=== PATIENT | male | born 1980 | race Caucasian/White ===

== ENCOUNTER 2020-01-25 19:43 | Emergency (ER) | payer OTHER, MEDICAID, SELFPAY ==
[2020-01-25 19:51] VITALS: BP 142/85; PULSE 123; RESP 14; TEMP 37.4; O2SAT 100; BMI 25.7
--- NOTE | 2020-01-25 21:41 | ED_ITS ---
HPI - General Adult General Chief complaint: Dental/Oral Stated complaint: states abscessed tooth Time Seen by Provider: 01/25/20 21:38 Source: patient Mode of arrival: Ambulatory Limitations: no limitations History of Present Illness HPI narrative: 39-year-old male with known very poor dentition here for evaluation of pain in his left upper jaw on left side of his cheek. He states that it feels like it is somewhat swollen this area. No problems breathing. Does not tried anything for the symptoms prior to arrival. Related Data Previous Rx's Medication Instructions Recorded penicillin V potassium 500 mg PO QID 7 Days #28 tab 01/25/20 Allergies Allergy/AdvReac Type Severity Reaction Status Date / Time No Known Drug Allergies Allergy Verified 01/25/20 19:51 Review of Systems Constitutional Constitutional: Denies fever(s) Eyes Eyes: Denies change in vision ENT Comments: Left upper with pain to that the G the. Cardiovascular Cardiovascular: Denies dyspnea Respiratory Respiratory: Denies dyspnea Gastrointestinal Gastrointestinal: Denies abdominal pain Integumentary/Breasts Skin/Breast: Denies lesions and Denies rash Neurologic Neurologic: Denies behavioral changes Psychiatric Psychiatric: Denies behavioral changes Hematologic/Lymphatic Hematologic/Lymphatic: Denies easy bleeding and Denies easy bruising Patient History Medical History Healthy adult (Acute) Social History Smoking Status: Current every day smoker Smoking Status: Current every day smoker alcohol intake frequency: holidays/special occasions only Substance Use Type: does not use Exam Initial Vital Signs Initial Vital Signs: Vital Signs Temperature 99.4 F 01/25/20 19:51 Pulse Rate 123 H 01/25/20 19:51 Respiratory Rate 14 01/25/20 19:51 Blood Pressure 142/85 H 01/25/20 19:51 Pulse Oximetry 100 01/25/20 19:51 Const General: cooperative and comfortable HENMT Face and sinus: edema on the left maxilla Mouth: oral mucosae normal Teeth and gingiva: poor dentition Throat: posterior oropharynx normal Resp Effort & Inspection: normal respiratory effort Skin Lesions: no lesions Rashes: no rashes Neuro General: alert and awake Cognition: normal cognition Speech: speech normal Extrem General: normal to inspection and capillary refill normal Course Orders Ordered: Discontinued Medications Penicillin V Potassium (Veetids) 500 mg PO NOW ONE Stop: 01/25/20 21:42 Last Admin: 01/25/20 22:00 Dose: 500 mg Documented by: ÁNGEL Vital Signs Vital signs: Vital Signs - 8 hr 01/25/20 19:51 01/25/20 22:04 Temperature 99.4 F Pulse Rate 123 H 97 H Respiratory Rate 14 16 Blood Pressure 142/85 H 146/92 H Pulse Oximetry 100 100 Medical Decision Making MDM Narrative Medical decision making narrative: Patient has very poor dentition. His exam is concerning for an infection. There is no drainable abscess seen here in the ER. We will give prescription for antibiotics. He was instructed that he does need to contact a dentist for a follow-up and definitive treatment. He was given return precautions. He expressed understanding and agreement. Discharge Plan Departure Patient Disposition: Home Clinical Impression: Dental abscess Discharge Date/Time: 01/25/20 22:05 Instructions: Tooth Abscess Activity Restrictions/Additional Instructions: Take the antibiotics as directed. I do recommend that you may contact with a dentist for definitive treatment. You can also contact [phone]. This is the health patient resource coordinator at the hospital. They can help you establish a primary provider. Prescriptions: New penicillin V potassium 500 mg tablet 500 mg PO QID 7 Days Qty: 28 RF: 0
[2020-01-25] MEDS: PENICILLIN VK 250 MG TABLET 500 MG PO (22:00)
[2020-01-25 22:04] VITALS: BP 146/92; PULSE 97; RESP 16; O2SAT 100
== END 2020-01-25 22:05 | disposition home or self-care (01) ==
PROVIDERS: Emergency Provider Emergency Medicine
DX: K04.7 Periapical abscess without sinus (principal)
CPT/HCPCS: 99283

== ENCOUNTER 2020-04-07 00:58 | Emergency (ER) | payer OTHER, MEDICAID, SELFPAY ==
[2020-04-07 01:07] VITALS: BP 142/90; PULSE 110; RESP 15; TEMP 36.7; O2SAT 98; BMI 25.0
--- NOTE | 2020-04-07 01:11 | DI.RAD.S_ITS ---
PROCEDURE: XR CHEST 1V INDICATIONS: chest pain TECHNIQUE: One view of the chest was acquired. COMPARISON: None. FINDINGS: Surgical changes and devices: None. Lungs and pleura: Lungs are clear. No pleural effusions or pneumothorax. Mediastinum: Mediastinal contours appear normal. Heart size is normal. Bones and chest wall: No suspicious bony lesions. Overlying soft tissues appear unremarkable. IMPRESSION: No acute cardiopulmonary findings. Dictated by: Laurie West M.D. on 04/07/2020 at 8:55 Approved by: Laurie West M.D. on 04/07/2020 at 9:05
[2020-04-07] MEDS: SODIUM CHLORIDE 0.9% 1,000 ML 150 ML IV (01:19)
[2020-04-07] MEDS: ASPIRIN 81 MG CHEW TAB 324 MG PO (01:19)
[2020-04-07 01:28] LABS: Add Manual Diff / Slide Review NO; Basophils Absolute Auto 100 /uL (0-100); Basophils Percent Auto 1.7 % (0-2); Eosinophils Absolute Auto 400 /uL (0-450); Eosinophils Percent Auto 6.7 % (2-4); Hematocrit 39.9 % (41-53); Hemoglobin 13.6 g/dL (13.5-17.5); Lymphocytes Absolute Auto 3100 /uL (1100-4500); Lymphocytes Percent Auto 47.1 % (25-40); Mean Corpuscular Hemoglobin 30.2 PG (26-34); Mean Corpuscular Volume 88.6 fL (80-100); Monocytes Absolute Auto 600 /uL (0-900); Monocytes Percent Auto 8.6 % (3-14); Neutrophils Absolute Auto 2300 /uL (1500-7000); Neutrophils Percent Auto 35.9 % (50-75); Platelet Count 295 X10^3/uL (150-400); Red Cell Distribution Width 13.1 % (11.6-14.8); White Blood Cell Count 6.5 X10^3/uL (4.5-11.0)
[2020-04-07 01:34] LABS: Alanine Aminotransferase 23 IU/L (<50); Albumin 4.4 g/dL (3.5-5.0); Albumin Globulin Ratio 1.4 (1.0-2.8); Alkaline Phosphatase 54 U/L (38-126); Aspartate Aminotransferase 20 IU/L (17-59); BUN Creatinine Ratio 12.8 (6-22); Bilirubin Total 0.2 mg/dL (0.2-1.3); Blood Urea Nitrogen 16 mg/dL (9-20); Calcium 9.6 mg/dL (8.4-10.2); Carbon Dioxide 29 mmol/L (22-32); Chloride 100 mmol/L (98-107); Creatine Kinase 59 U/L (55-170); Estimated Glomerular Filt Rate > 60.0 mL/min (>60); Globulin 3.1 g/dL (1.7-4.1); Glucose 121 mg/dL (70-100); HEMOLYSIS < 15 (0-50); Lipase 114 U/L (23-300); Potassium 3.9 mmol/L (3.4-5.1); Sodium 137 mmol/L (137-145); Total Protein 7.5 g/dL (6.3-8.2)
[2020-04-07 01:35] LABS: D Dimer < 200 ng/mL (<230)
[2020-04-07 01:46] LABS: Troponin I < 0.012 ng/mL (0.01-0.034)
--- NOTE | 2020-04-07 02:17 | ED_ITS ---
HPI - Chest Pain General Chief Complaint: Chest Pain Stated Complaint: 'chest thing going on' Time Seen by Provider: 04/07/20 01:00 Source: patient Mode of arrival: Ambulatory Limitations: no limitations History of Present Illness HPI narrative: 39M smoker with history of smoking methamphetamines presents with a chief complaint of some anterior chest pressure for the past 3 days. He denies any provocation, palliation or radiation. He denies associated symptoms such as dizziness, weakness, lightheadedness or sweating. He has had no productive cough and denies symptoms such as runny nose, sore throat, headache or change in the ability to smell. complaint: chest pain Onset (ago): day(s) Duration: constant Onset: other Pain location: substernal Severity: mild Quality: aching Pain radiation: none Relieving factors: nothing Exacerbating factors: nothing Treatments prior to arrival chest pain: none Related Data Previous Rx's Medication Instructions Recorded doxycycline hyclate 100 mg PO BID #20 tab 04/07/20 Allergies Allergy/AdvReac Type Severity Reaction Status Date / Time No Known Drug Allergies Allergy Verified 04/07/20 01:07 Review of Systems Constitutional Constitutional: Denies chills, Denies fatigue, Denies fever(s), Denies frequent falls, Denies lethargy and Denies weakness Eyes Eyes: Denies change in vision, Denies eye discharge, Denies irritation and Denies loss of vision ENT Ears, Nose, Mouth, and Throat: Denies change in voice, Denies dizziness, Denies neck pain, Denies sore throat and Denies throat swelling Cardiovascular Cardiovascular: Reports chest pain, Denies irregular heart rhythm, Denies lightheadedness, Denies palpitations, Denies dyspnea, Denies dyspnea on exertion and Denies orthopnea Respiratory Respiratory: Denies cough, Denies dyspnea, Denies dyspnea on exertion and Denies wheezing Gastrointestinal Gastrointestinal: Denies abdominal pain, Denies change in bowel habits, Denies diarrhea, Denies nausea and Denies vomiting Genitourinary Genitourinary: Denies hematuria, Denies flank pain, Denies urinary incontinence and Denies urinary urgency Musculoskeletal Musculoskeletal: Denies back pain, Denies muscle weakness, Denies neck pain, Denies numbness and Denies tingling Integumentary/Breasts Skin/Breast: Denies pruritus, Denies erythema, Denies rash and Denies wounds Neurologic Neurologic: Denies behavioral changes, Denies confusion, Denies dizziness, Denies frequent falls, Denies loss of vision, Denies numbness, Denies tingling and Denies weakness Psychiatric Psychiatric: Denies anxiety, Denies behavioral changes, Denies confusion, Denies depression, Denies homicidal ideation and Denies suicidal ideation Endocrine Endocrine: Denies fatigue, Denies flushing and Denies palpitations Hematologic/Lymphatic Hematologic/Lymphatic: Denies easy bruising Allergic/Immunologic Allergic/Immunologic: Denies urticaria, Denies throat swelling and Denies wheezing Patient History Medical History Healthy adult (Acute) Social History Smoking Status: Current every day smoker Smoking Status: Current every day smoker alcohol intake frequency: holidays/special occasions only Substance Use Type: methamphetamine Exam Narrative Exam Narrative: GENERAL: [39] year old patient appears stated age. Well- nourished, well-developed patient, in mild distress. HEAD: Atraumatic. Normocephalic. EYES: Pupils equal round and reactive. Extraocular motions intact. No scleral icterus. No injection or drainage. ENT: Poor dentition throughout Nose without bleeding, purulent drainage. Throat without erythema, tonsillar hypertrophy or exudate. Airway patent. NECK: Trachea midline. Non tender CARDIOVASCULAR: Regular rate and rhythm without murmurs, gallops, or rubs. RESPIRATORY: Clear to auscultation. Breath sounds equal bilaterally. No wheezes, rales, or rhonchi. GASTROINTESTINAL: Abdomen soft, non-tender, nondistended. EXTREMITIES: No edema or joint tenderness. BACK: Nontender without deformity or crepitance. No flank tenderness. NEURO: AOx3. SKIN: No rash or erythema of visible areas Initial Vital Signs Initial Vital Signs: Vital Signs Temperature 98.0 F 04/07/20 01:07 Pulse Rate 110 H 04/07/20 01:07 Respiratory Rate 15 04/07/20 01:07 Blood Pressure 142/90 H 04/07/20 01:07 Pulse Oximetry 98 04/07/20 01:07 Course Orders Ordered: ED Orders 04/07/20 01:06 EKG-12 Lead Routine 04/07/20 01:10 Complete Blood Count AUTO DIFF Stat Comprehensive Metabolic Panel Stat D Dimer Stat Lipase Stat Troponin & CK Cardiac Panel Stat 04/07/20 01:11 XR chest 1V Stat Discontinued Medications Aspirin (Aspirin Chew) 324 mg PO NOW ONE Stop: 04/07/20 01:11 Last Admin: 04/07/20 01:19 Dose: 324 mg Documented by: BRENT Sodium Chloride (Normal Saline 0.9%) 1,000 mls @ 150 mls/hr IV CONT VIRGILIO Last Infusion: 04/07/20 02:38 Dose: 0 mls/hr Documented by: Admin: 04/07/20 01:19 Dose: 150 mls/hr Documented by: BRENT Vital Signs Vital signs: Vital Signs - 8 hr 04/07/20 01:07 04/07/20 02:39 Temperature 98.0 F Pulse Rate 110 H 99 H Respiratory Rate 15 16 Blood Pressure 142/90 H 142/70 H Pulse Oximetry 98 98 MDM - Chest Pain Lab Data Result diagrams: 04/07/20 01:10 04/07/20 01:10 Labs: Lab Results 04/07/20 04/07/20 04/07/20 Range/Units 01:10 01:10 01:10 WBC 6.5 (4.5-11.0) X10^3/uL RBC 4.50 (4.5-5.9) X10^6/uL Hgb 13.6 (13.5-17.5) g/dL Hct 39.9 L (41-53) % MCV 88.6 (80-100) fL MCH 30.2 (26-34) PG MCHC 34.0 (30-36) % RDW 13.1 (11.6-14.8) % Plt Count 295 (150-400) X10^3/uL Neut % (Auto) 35.9 L (50-75) % Lymph % (Auto) 47.1 H (25-40) % Hayes % (Auto) 8.6 (3-14) % Eos % (Auto) 6.7 H (2-4) % Baso % (Auto) 1.7 (0-2) % Neut # (Auto) 2300 (4031-8776) /uL Lymph # (Auto) 3100 (2077-2884) /uL Hayes # (Auto) 600 (0-900) /uL Eos # (Auto) 400 (0-450) /uL Baso # (Auto) 100 (0-100) /uL D-Dimer < 200 (<230) ng/mL Sodium 137 (137-145) mmol/L Potassium 3.9 (3.4-5.1) mmol/L Chloride 100 (98-107) mmol/L Carbon Dioxide 29 (22-32) mmol/L BUN 16 (9-20) mg/dL Creatinine 1.25 (0.66-1.25) mg/dL Estimated GFR > 60.0 (>60) mL/min BUN/Creatinine Ratio 12.8 (6-22) Glucose 121 H (70-100) mg/dL Calcium 9.6 (8.4-10.2) mg/dL Total Bilirubin 0.2 (0.2-1.3) mg/dL AST 20 (17-59) IU/L ALT 23 (<50) IU/L Alkaline Phosphatase 54 (38-126) U/L Total Creatine Kinase 59 (55-170) U/L CK-MB (CK-2) TNP CK-MB (CK-2) Rel Index TNP Troponin I < 0.012 (0.01-0.034) ng/mL Total Protein 7.5 (6.3-8.2) g/dL Albumin 4.4 (3.5-5.0) g/dL Globulin 3.1 (1.7-4.1) g/dL Albumin/Globulin Ratio 1.4 (1.0-2.8) Lipase 114 (23-300) U/L Imaging Data Chest x-ray: Attestation: I personally reviewed and interpreted this imaging study as follows: My Impression: RLL airspace disease ECG Data Attestation: I personally reviewed and interpreted this ECG as follows: Prior ECG tracings: not available for review Interpretation: EKG is sinus tach rate [114 ] and free of any signs of ischemia or ectopy. No ST segmental elevation or depression. No T wave inversions MDM Narrative Medical decision making narrative: Multiple causes of chest pain considered including IL, PE, pneumothorax, pneumonia, aortic dissection, and pleurisy. Patient reports no radiation, no diaphoresis, no provocation with exertion, and no vomiting Patient's symptoms improved or duration of stay with above-stated therapies. Findings and discharge diagnosis discussed with patient/family followed by verbalization of understanding Return precautions discussed with patient/family whom verbalize understanding. Discharge Plan Departure Patient Disposition: Home Clinical Impression: Atypical chest pain, Atypical pneumonia Discharge Date/Time: 04/07/20 02:40 Activity Restrictions/Additional Instructions: *You have been diagnosed with [chest pain, likely due to atypical pneumonia] *What to do: *Take medications as directed *Follow up with your primary care provider in 2-3 days, call for an appointment. Let them know you were seen in the Emergency Department and that we ask that you be seen in follow up *Return to ER if you should have any new, worsening or concerning symptoms Prescriptions: New doxycycline hyclate 100 mg tablet 100 mg PO BID Qty: 20 RF: 0 Referrals: [facility] [Outside]
[2020-04-07 02:39] VITALS: BP 142/70; PULSE 99; RESP 16; O2SAT 98
== END 2020-04-07 02:40 | disposition home or self-care (01) ==
PROVIDERS: Emergency Provider Emergency Medicine
DX: R07.89 Other chest pain (principal); J18.9 Pneumonia, unspecified organism
CPT/HCPCS: 36415; 71045; 80053; 82550; 83690; 84484; 85025; 85379; 93005; 96360; 99284

== ENCOUNTER 2020-10-24 14:00 | Emergency (ER) | payer OTHER, MEDICAID, SELFPAY ==
[2020-10-24 14:11] VITALS: BP 147/88; PULSE 83; RESP 16; TEMP 36.8; O2SAT 98; BMI 28.5
[2020-10-24 14:13] VITALS: PULSE 84; RESP 16; O2SAT 99
--- NOTE | 2020-10-24 14:23 | DI.RAD.S_ITS ---
PROCEDURE: XR CHEST 1V INDICATIONS: Chest pressure TECHNIQUE: One view of the chest was acquired. COMPARISON: [facility], CR, XR CHEST 1V, 04/07/2020, 1:15. FINDINGS: Surgical changes and devices: None. Lungs and pleura: Lungs are clear. No pleural effusions or pneumothorax. Mediastinum: Mediastinal contours appear normal. Heart size is normal. Bones and chest wall: No suspicious bony lesions. Overlying soft tissues appear unremarkable. IMPRESSION: Normal for age, source of current chest pressure symptoms is not seen. Dictated by: Julián Mejia M.D. on 10/24/2020 at 14:41 Approved by: Julián Mejia M.D. on 10/24/2020 at 14:41
--- NOTE | 2020-10-24 14:26 | ED.CHESTPAIN ---
HPI - Chest Pain <BOGDAN Gudino - Last Filed: 10/24/20 18:19> General Chief Complaint: Chest Pain Stated Complaint: CHEST PAIN Time Seen by Provider: 10/24/20 14:10 Source: patient Mode of arrival: Ambulatory History of Present Illness HPI narrative: 40yo male current smoker, presents to the ED the emergency department for constant substernal chest pressure for the past 2 weeks. Patient denies any aggravating or alleviating symptoms, denies any other associated symptoms. He told the triage nurse that he had walking pneumonia in the past and this feels similar. Denies any cough, sore throat, rhinorrhea, dizziness, nausea, vomiting, diarrhea, shortness of breath, or any other concerns. A quick chart review reveals patient was seen in March of 2020 for similar chest pressure and was diagnosed and treated for atypical pneumonia. He denies taking any medications, denies any surgeries or significant past medical history. Related Data Allergies Allergy/AdvReac Type Severity Reaction Status Date / Time No Known Drug Allergies Allergy Verified 10/24/20 14:53 Review of Systems <BOGDAN Gudino - Last Filed: 10/24/20 18:19> Review of Systems Narrative: REVIEW OF SYSTEMS: GENERAL: Denies fever or chills. HENT: No head trauma. EYES: No vision changes. CARDIOVASCULAR: Reports chest pressure, see HPI. RESPIRATORY: No shortness of breath or cough. GASTROINTESTINAL: No nausea or vomiting. GENITOURINARY: No flank pain or dysuria. MUSCULOSKELETAL: No injury. INTEGUMENTARY: No rash. NEURO: No numbness or tingling. Patient History <BOGDAN Gudino - Last Filed: 10/24/20 18:19> Medical History (Updated 10/24/20 @ 15:39 by BOGDAN Gudino) Healthy adult Social History Smoking Status: Former smoker Smoking Status: Former smoker alcohol intake frequency: 3 or more drinks per day Alcohol type: beer Substance Use Type: does not use and methamphetamine Exam <BOGDAN Gudino - Last Filed: 10/24/20 18:19> Initial Vital Signs Initial Vital Signs: Vital Signs Temperature 98.2 F 10/24/20 14:11 Pulse Rate 83 10/24/20 14:11 Respiratory Rate 16 11/24/20 14:11 Blood Pressure 147/88 H 10/24/20 14:11 Pulse Oximetry 98 10/24/20 14:11 PHYSICAL EXAMINATION: GENERAL: Well groomed, alert, and cooperative. Answers questions promptly and appropriately. Vital signs noted. HENT: Normocephalic, atraumatic. Ear canals patent. Oral mucosa is pink and moist. EYES: Conjunctiva pink, sclera white, no periorbital swelling. CHEST: Normal to inspection and without deformities. CARDIOVASCULAR: S1 and S2 sounds normal. Regular rate and rhythm, no murmurs, clicks, or bruits. No pedal edema. RESPIRATORY: Normal respiratory rate, trachea midline, airway patent. No stridor, nasal flaring or accessory muscle use. Lungs are clear in all robles without wheeze, rhonchi, or crackles. No cough observed. GASTROINTESTINAL: Bowel sounds normoactive. Abdomen is soft and non-tender. No organomegaly. MUSCULOSKELETAL: Normal gait and coordination. Equal tone and mass bilaterally. EXTREMITIES: CMS intact. Moves all extremities. SKIN: Warm, dry, soft, appropriate color for ethnicity. No lesions, rashes, or wounds. NEURO: Alert and Oriented X 3. Good coordination. No ataxia, or sensory deficits, or cognitive issues. PSYCH: Flat affect, answers questions with a simple yes or no. <Carlos Henao DO - Last Filed: 10/24/20 18:37> Initial Vital Signs Initial Vital Signs: Vital Signs Temperature 98.2 F 10/24/20 14:11 Pulse Rate 83 10/24/20 14:11 Respiratory Rate 16 10/24/20 14:11 Blood Pressure 147/88 H 10/24/20 14:11 Pulse Oximetry 98 10/24/20 14:11 Course <BOGDAN Gudino - Last Filed: 10/24/20 18:19> Course Course Narrative: Patient denies any aggravating or alleviating symptoms during his ED stay. Orders Ordered: ED Orders 10/24/20 14:10 EKG-12 Lead Stat 10/24/20 14:15 Complete Blood Count AUTO DIFF Stat Comprehensive Metabolic Panel Stat Lipase Stat Troponin & CK Cardiac Panel Stat 10/24/20 14:23 XR chest 1V Stat 10/24/20 14:50 COVID19 Stat Consultations Consultation #1: Patient staffed with Dr. Henao discussed test, test results, plan of care. Vital Signs Vital signs: Vital Signs - 8 hr 10/24/20 14:11 10/24/20 14:13 10/24/20 14:30 Temperature 98.2 F Pulse Rate 83 84 90 Respiratory Rate 16 16 20 Blood Pressure 147/88 H 148/79 H Pulse Oximetry 98 99 98 10/24/20 15:00 10/24/20 15:30 Temperature Pulse Rate 82 78 Respiratory Rate 17 15 Blood Pressure 117/75 127/78 Pulse Oximetry 96 94 <Carlos Henao DO - Last Filed: 10/24/20 18:37> Orders Ordered: ED Orders 10/24/20 14:10 EKG-12 Lead Stat 10/24/20 14:15 Complete Blood Count AUTO DIFF Stat Comprehensive Metabolic Panel Stat Lipase Stat Troponin & CK Cardiac Panel Stat 10/24/20 14:23 XR chest 1V Stat 10/24/20 14:50 COVID19 Stat Vital Signs Vital signs: Vital Signs - 8 hr 10/24/20 14:11 10/24/20 14:13 10/24/20 14:30 Temperature 98.2 F Pulse Rate 83 84 90 Respiratory Rate 16 16 20 Blood Pressure 147/88 H 148/79 H Pulse Oximetry 98 99 98 10/24/20 15:00 10/24/20 15:30 Temperature Pulse Rate 82 78 Respiratory Rate 17 15 Blood Pressure 117/75 127/78 Pulse Oximetry 96 94 MDM - Chest Pain <BOGDAN Gudino - Last Filed: 10/24/20 18:19> Medical Records Data Attestation: I reviewed the patient's medical records. Lab Data Attestation: I reviewed the patient's lab results. Result diagrams: 10/24/20 14:15 10/24/20 14:15 Labs: Lab Results 10/24/20 10/24/20 10/24/20 Range/Units 14:15 14:15 14:50 WBC 7.9 (4.5-11.0) X10^3/uL RBC 4.88 (4.5-5.9) X10^6/uL Hgb 14.8 (13.5-17.5) g/dL Hct 44.0 (41-53) % MCV 90.0 (80-100) fL MCH 30.3 (26-34) PG MCHC 33.7 (30-36) % RDW 12.8 (11.6-14.8) % Plt Count 271 (150-400) X10^3/uL Neut % (Auto) 56.3 (50-75) % Lymph % (Auto) 34.6 (25-40) % Maury % (Auto) 6.6 (3-14) % Eos % (Auto) 1.5 L (2-4) % Baso % (Auto) 1.0 (0-2) % Neut # (Auto) 4400 (4502-2392) /uL Lymph # (Auto) 2700 (1342-3784) /uL Ma[place] # (Auto) 500 (0-900) /uL Eos # (Auto) 100 (0-450) /uL Baso # (Auto) 100 (0-100) /uL Sodium 138 (137-145) mmol/L Potassium 3.9 (3.4-5.1) mmol/L Chloride 101 (98-107) mmol/L Carbon Dioxide 31 (22-32) mmol/L BUN 15 (9-20) mg/dL Creatinine 0.89 (0.66-1.25) mg/dL Estimated GFR > 60.0 (>60) mL/min BUN/Creatinine Ratio 16.9 (6-22) Glucose 98 (70-100) mg/dL Calcium 9.9 (8.4-10.2) mg/dL Total Bilirubin 0.5 (0.2-1.3) mg/dL AST 34 (17-59) IU/L ALT 44 (<50) IU/L Alkaline Phosphatase 54 (38-126) U/L Total Creatine Kinase 64 (55-170) U/L CK-MB (CK-2) TNP CK-MB (CK-2) Rel Index TNP Troponin I < 0.012 (0.01-0.034) ng/mL Total Protein 8.6 H (6.3-8.2) g/dL Albumin 4.9 (3.5-5.0) g/dL Globulin 3.7 (1.7-4.1) g/dL Albumin/Globulin Ratio 1.3 (1.0-2.8) Lipase 49 (23-300) U/L COVID-19 PCR Negative (Negative) Imaging Data Chest x-ray: Radiologist's Impression: [facility] [place] [id number] ReportSigned Patient: Haim Hunt TMR#: [id number]: [id number]:[id number]/Sex: 40 / MDate of Service: 10/24/20Loc: EDAccession Number: [id number] Procedure: XR chest 1V Ordering Provider: Velma Clinton PROCEDURE: XR CHEST 1V INDICATIONS: Chest pressure TECHNIQUE: One view of the chest was acquired. COMPARISON: [facility], , XR CHEST 1V, 04/07/2020, 1:15. FINDINGS: Surgical changes and devices: None. Lungs and pleura: Lungs are clear. No pleural effusions or pneumothorax. Mediastinum: Mediastinal contours appear normal. Heart size is normal. Bones and chest wall: No suspicious bony lesions. Overlying soft tissues appear unremarkable. IMPRESSION: Normal for age, source of current chest pressure symptoms is not seen. Dictated by: Julián Mejia M.D. on 10/24/2020 at 14:41 Approved by: Julián Mejia M.D. on 10/24/2020 at 14:41 ECG Data Interpretation: 1410: Sinus rhythm, rate 81, AL interval 149, QTC 396. No ST elevation or ST depression. No T-wave inversion. No ectopy. EKG also viewed Dr. Henao per eliel. [facility] Narrative Medical decision making narrative: 40-year-old male presenting to the emergency department for chest pressure a ongoing for the past few weeks. I am unsure the exact cause of chest pressure but differential included reactive airway disease versus heartburn versus anxiety. Less likely ACS given non remarkable EKG, troponin within normal limits, constant pressure for the past few weeks with out any worsening, and lack of other concerning symptoms such as shortness of breath. Patient's heart score is 1 Less likely pneumonia or pulmonary etiology given negative chest x-ray, lack of cough, fevers, tachycardia, or other associated symptoms such as rhinitis. Patient's COVID-19 test is negative. Less likely PE as patient denies any shortness of breath, dyspnea. There is no hypoxia, tachypnea, or tachycardia. Patient has low risk factors. He was encouraged to follow up with a PCP in the next 1-2 weeks for further evaluation. Strict return precautions given for new or worsening symptoms. <Carlos Lanker, DO - Last Filed: 10/24/20 18:37> Lab Data Labs: Lab Results 10/24/20 10/24/20 10/24/20 Range/Units 14:15 14:15 14:50 WBC 7.9 (4.5-11.0) X10^3/uL RBC 4.88 (4.5-5.9) X10^6/uL Hgb 14.8 (13.5-17.5) g/dL Hct 44.0 (41-53) % MCV 90.0 (80-100) fL MCH 30.3 (26-34) PG MCHC 33.7 (30-36) % RDW 12.8 (11.6-14.8) % Plt Count 271 (150-400) X10^3/uL Neut % (Auto) 56.3 (50-75) % Lymph % (Auto) 34.6 (25-40) % Maury % (Auto) 6.6 (3-14) % Eos % (Auto) 1.5 L (2-4) % Baso % (Auto) 1.0 (0-2) % Neut # (Auto) 4400 (8503-0327) /uL Lymph # (Auto) 2700 (6430-7952) /uL Maury # (Auto) 500 (0-900) /uL Eos # (Auto) 100 (0-450) /uL Baso # (Auto) 100 (0-100) /uL Sodium 138 (137-145) mmol/L Potassium 3.9 (3.4-5.1) mmol/L Chloride 101 (98-107) mmol/L Carbon Dioxide 31 (22-32) mmol/L BUN 15 (9-20) mg/dL Creatinine 0.89 (0.66-1.25) mg/dL Estimated GFR > 60.0 (>60) mL/min BUN/Creatinine Ratio 16.9 (6-22) Glucose 98 (70-100) mg/dL Calcium 9.9 (8.4-10.2) mg/dL Total Bilirubin 0.5 (0.2-1.3) mg/dL AST 34 (17-59) IU/L ALT 44 (<50) IU/L Alkaline Phosphatase 54 (38-126) U/L Total Creatine Kinase 64 (55-170) U/L CK-MB (CK-2) TNP CK-MB (CK-2) Rel Index TNP Troponin I < 0.012 (0.01-0.034) ng/mL Total Protein 8.6 H (6.3-8.2) g/dL Albumin 4.9 (3.5-5.0) g/dL Globulin 3.7 (1.7-4.1) g/dL Albumin/Globulin Ratio 1.3 (1.0-2.8) Lipase 49 (23-300) U/L COVID-19 PCR Negative (Negative) Discharge Plan Departure Patient Disposition: Home Clinical Impression: Atypical chest pain Instructions: DI for Atypical Chest Pain Activity Restrictions/Additional Instructions: Thank you for entrusting me with your care today. As discussed, your laboratory work, chest x-ray, COVID-19 test, and EKG are within normal limits. I am unsure the exact cause of your chest pressure, this may be related to smoking. Please follow-up with your primary care provider in the next 1-2 weeks for further evaluation and testing. Return emergency department for any new or worsening symptoms. <Carlos Henao, DO - Last Filed: 10/24/20 18:37> [facility] Dr Henao Co-Sign Statement: I was available for consultation during this patient's emergency department visit. This chart is signed by myself for administrative purposes only. I did not have direct contact with this patient during this visit. They were seen independently by the APC.
[2020-10-24 14:30] VITALS: BP 148/79; PULSE 90; RESP 20; O2SAT 98
[2020-10-24 14:31] LABS: Add Manual Diff / Slide Review NO; Basophils Absolute Auto 100 /uL (0-100); Eosinophils Absolute Auto 100 /uL (0-450); Eosinophils Percent Auto 1.5 % (2-4); Hemoglobin 14.8 g/dL (13.5-17.5); Lymphocytes Absolute Auto 2700 /uL (1100-4500); Lymphocytes Percent Auto 34.6 % (25-40); Mean Corpuscular HGB Conc 33.7 % (30-36); Mean Corpuscular Hemoglobin 30.3 PG (26-34); Monocytes Absolute Auto 500 /uL (0-900); Monocytes Percent Auto 6.6 % (3-14); Neutrophils Absolute Auto 4400 /uL (1500-7000); Neutrophils Percent Auto 56.3 % (50-75); Platelet Count 271 X10^3/uL (150-400); Red Blood Cell Count 4.88 X10^6/uL (4.5-5.9); Red Cell Distribution Width 12.8 % (11.6-14.8); White Blood Cell Count 7.9 X10^3/uL (4.5-11.0)
[2020-10-24 14:45] LABS: Alanine Aminotransferase 44 IU/L (<50); Albumin 4.9 g/dL (3.5-5.0); Albumin Globulin Ratio 1.3 (1.0-2.8); Alkaline Phosphatase 54 U/L (38-126); Aspartate Aminotransferase 34 IU/L (17-59); BUN Creatinine Ratio 16.9 (6-22); Bilirubin Total 0.5 mg/dL (0.2-1.3); Blood Urea Nitrogen 15 mg/dL (9-20); Calcium 9.9 mg/dL (8.4-10.2); Carbon Dioxide 31 mmol/L (22-32); Chloride 101 mmol/L (98-107); Creatine Kinase 64 U/L (55-170); Estimated Glomerular Filt Rate > 60.0 mL/min (>60); Globulin 3.7 g/dL (1.7-4.1); Glucose 98 mg/dL (70-100); HEMOLYSIS < 15 (0-50); Lipase 49 U/L (23-300); Potassium 3.9 mmol/L (3.4-5.1); Sodium 138 mmol/L (137-145); Total Protein 8.6 g/dL (6.3-8.2)
[2020-10-24 14:57] LABS: Troponin I < 0.012 ng/mL (0.01-0.034)
[2020-10-24 15:00] VITALS: BP 117/75; PULSE 82; RESP 17; O2SAT 96
[2020-10-24 15:30] VITALS: BP 127/78; PULSE 78; RESP 15; O2SAT 94
[2020-10-24 15:52] LABS: COVID19 -Nasal RAPID Negative (Negative)
== END 2020-10-24 16:14 | disposition home or self-care (01) ==
PROVIDERS: Emergency Provider Nurse Practitioner
DX: R07.89 Other chest pain (principal); Z11.59 Encounter for screening for other viral diseases
CPT/HCPCS: 36415; 71045; 80053; 82550; 83690; 84484; 85025; 87635; 93005; 93010; 99281; 99284

== ENCOUNTER 2020-12-07 01:44 | Emergency (ER) | payer OTHER, MEDICAID, SELFPAY ==
[2020-12-07 01:54] VITALS: BP 148/87; PULSE 105; RESP 18; TEMP 36.6; O2SAT 98; BMI 31.1
[2020-12-07 02:22] LABS: COVID19 -Nasal RAPID Negative (Negative)
--- NOTE | 2020-12-07 02:26 | ED_ITS ---
HPI - URI/Sore Throat General Chief Complaint: Upper Respiratory Symptoms Stated Complaint: Covid exposure, sore throat, headache Time Seen by Provider: 12/07/20 02:00 Source: patient Mode of arrival: Ambulatory Limitations: no limitations History of Present Illness HPI Narrative: Patient is a 40-year-old male who presents with cough shortness of breath and sore throat ongoing for last couple of hours after he was in a car without a mask with a COVID positive patient. He apparently drove this person to the hospital where they later tested positive for COVID. He now at 2:00 a.m. wants a COVID test. Complaint: cough and sore throat Related Data Allergies Allergy/AdvReac Type Severity Reaction Status Date / Time No Known Drug Allergies Allergy Verified 12/07/20 01:56 Review of Systems Review of Systems Narrative: GENERAL: Denies chills, fatigue, malaise, fever, sweats, travel HEENT: Sore throat RESPIRATORY: Denies dyspnea, cough, wheezing, hemoptysis, sputum. CARDIOVASCULAR: Denies chest pain, palpitations, orthopnea, edema GASTROINTESTINAL: Denies nausea, vomiting, abdominal pain, diarrhea, constipation, melena. : Denies dysuria, frequency, incontinence, hematuria, urinary retention, flank pain. MUSCULOSKELETAL: Denies weakness, joint pain, or bony pain SKIN: No rash, no erythema, no pruritus NEUROLOGIC: Denies weakness, dizziness, headache, numbness, change in speech, confusion PSYCHIATRIC: No concerning psychosocial issues. 12 point review of systems is negative except for those stated above and HPI Patient History Medical History Healthy adult Social History Smoking Status: Former smoker Smoking Status: Former smoker tobacco type: vaping alcohol intake frequency: 3 or more drinks per day Alcohol type: beer Substance Use Type: marijuana and methamphetamine Exam Initial Vital Signs Initial Vital Signs: Vital Signs Temperature 97.9 F 12/07/20 01:54 Pulse Rate 105 H 12/07/20 01:54 Respiratory Rate 18 12/07/20 01:54 Blood Pressure 148/87 H 12/07/20 01:54 Pulse Oximetry 98 12/07/20 01:54 GENERAL: Well-appearing, well-nourished and in no acute distress. HEENT: Head atraumatic,EOMI, pupils reactive, face symmetric, moist mucous membranes CARDIOVASCULAR: Regular rate and rhythm without murmurs, rubs or gallops. RESPIRATORY: Breath sounds equal bilaterally, no wheezes rales or rhonchi. ABDOMEN: Soft, nontender. Normoactive bowel sounds all 4 quadrants. No guarding or rebound. EXTREMITIES: Normal range of motion, no clubbing or edema. Neurovascularly intact NEUROLOGICAL: Alert and oriented x4. SKIN: Warm, dry, no laceration, no petechiae, no rashes or lesions. Course Orders Ordered: ED Orders 12/07/20 02:00 COVID19 Stat Vital Signs Vital signs: Vital Signs - 8 hr 12/07/20 01:54 Temperature 97.9 F Pulse Rate 105 H Respiratory Rate 18 Blood Pressure 148/87 H Pulse Oximetry 98 MDM - URI/Sore Throat Lab Data Labs: Lab Results 12/07/20 Range/Units 02:00 SARS-CoV-2 (PCR) Negative (Negative) Discharge Plan Departure Patient Disposition: Home Clinical Impression: Close exposure to 2019 novel coronavirus Instructions: Coronavirus Disease 2019 Activity Restrictions/Additional Instructions: You have been exposed to COVID 19 please follow the guidelines below and quarantine for 14 days after last contact with someone who has had COVID. It is recommended that you buy a home pulse oximeter and monitor your oxygen levels. Return to the ER if your oxygen is below 88% Return to the ER if you are having significant shortness of breath. Please follow-up with her primary care provider in the next 2-3 did Who needs to quarantine? People who have been in close contact with someone who has COVID-19?excluding people who have had COVID-19 within the past 3 months. People who have tested positive for COVID-19 within the past 3 months and recovered do not have to quarantine or get tested again as long as they do not develop new symptoms. People who develop symptoms again within 3 months of their first bout of COVID-19 may need to be tested again if there is no other cause identified for their symptoms. What counts as close contact? You were within 6 feet of someone who has COVID-19 for a total of 15 minutes or more You provided care at home to someone who is sick with COVID-19 You had direct physical contact with the person (hugged or kissed them) You shared eating or drinking utensils They sneezed, coughed, or somehow got respiratory droplets on you Steps to take Stay home and monitor your health Stay home for 14 days after your last contact with a person who has COVID-19. Watch for fever (100.4?F), cough, shortness of breath, or other symptoms of COVID-19 If possible, stay away from others, especially people who are at higher risk for getting very sick from COVID-19 Referrals: [facility] [Outside]
== END 2020-12-07 02:46 | disposition home or self-care (01) ==
PROVIDERS: Emergency Provider Emergency Medicine
DX: Z20.822 Contact with and (suspected) exposure to COVID-19 (principal); R06.02 Shortness of breath; J02.9 Acute pharyngitis, unspecified
CPT/HCPCS: 87635; 99281; 99282; C9803

== ENCOUNTER 2021-08-22 14:39 | Emergency (ER) | payer OTHER, MEDICAID, SELFPAY ==
[2021-08-22 14:43] VITALS: BP 178/102; PULSE 119; RESP 17; TEMP 36.6; O2SAT 99; BMI 30.3
[2021-08-22 14:55] LABS: Add Manual Diff / Slide Review NO; Basophils Absolute Auto 100 /uL (0-100); Basophils Percent Auto 1.1 % (0-2); Eosinophils Absolute Auto 100 /uL (0-450); Eosinophils Percent Auto 2.1 % (2-4); Hemoglobin 13.8 g/dL (13.5-17.5); Lymphocytes Absolute Auto 2400 /uL (1100-4500); Lymphocytes Percent Auto 37.9 % (25-40); Mean Corpuscular HGB Conc 32.9 % (30-36); Mean Corpuscular Hemoglobin 29.4 PG (26-34); Mean Corpuscular Volume 89.3 fL (80-100); Monocytes Absolute Auto 400 /uL (0-900); Monocytes Percent Auto 6.8 % (3-14); Neutrophils Absolute Auto 3300 /uL (1500-7000); Neutrophils Percent Auto 52.1 % (50-75); Platelet Count 299 X10^3/uL (150-400); Red Cell Distribution Width 12.9 % (11.6-14.8); White Blood Cell Count 6.3 X10^3/uL (4.5-11.0)
[2021-08-22 15:00] VITALS: BP 144/82; PULSE 113; RESP 13; O2SAT 98
[2021-08-22 15:04] LABS: Alanine Aminotransferase 20 IU/L (<50); Albumin 4.6 g/dL (3.5-5.0); Albumin Globulin Ratio 1.5 (1.0-2.8); Alkaline Phosphatase 42 U/L (38-126); Aspartate Aminotransferase 22 IU/L (17-59); BUN Creatinine Ratio 9.4 (6-22); Bilirubin Total 0.3 mg/dL (0.2-1.3); Blood Urea Nitrogen 8 mg/dL (9-20); Calcium 9.8 mg/dL (8.4-10.2); Carbon Dioxide 30 mmol/L (22-32); Chloride 102 mmol/L (98-107); Estimated Glomerular Filt Rate > 60.0 mL/min (>60); Globulin 3.1 g/dL (1.7-4.1); Glucose 82 mg/dL (70-100); HEMOLYSIS < 15 (0-50); Lipase 53 U/L (23-300); Potassium 3.6 mmol/L (3.4-5.1); Sodium 140 mmol/L (137-145); Total Protein 7.7 g/dL (6.3-8.2)
[2021-08-22 15:30] VITALS: BP 138/74; PULSE 108; RESP 14; O2SAT 98
--- NOTE | 2021-08-22 15:47 | ED_ITS ---
HPI - General Adult General Chief complaint: Abdominal Pain Stated complaint: chest pressure Time Seen by Provider: 08/22/21 14:53 Source: patient Mode of arrival: Ambulatory Limitations: no limitations History of Present Illness HPI narrative: Patient is a 41-year-old male who had a chief complaint of abdominal pain. But there was also discussion about having chest discomfort. He told nursing staff that it was in his upper abdomen. He was seen at a an outside facility recently for chest discomfort. He was given referral to follow up with primary care provider. He is not done that up to this point. At the time of my evaluation he stated that his pain is in his abdomen. He denied any chest pain. No shortness of breath. No urinary symptoms. No change in bowel habits. He states that the symptoms he presents with today been present for the past 6 months. Related Data Allergies Allergy/AdvReac Type Severity Reaction Status Date / Time No Known Drug Allergies Allergy Verified 08/22/21 14:48 Review of Systems Constitutional Constitutional: Denies fever(s) Cardiovascular Cardiovascular: Denies chest pain and Denies dyspnea Respiratory Respiratory: Denies dyspnea Gastrointestinal Gastrointestinal: Reports abdominal pain, Denies change in bowel habits, Denies nausea and Denies vomiting Genitourinary Genitourinary: Denies dysuria Musculoskeletal Musculoskeletal: Denies back pain Integumentary/Breasts Skin/Breast: Denies rash Hematologic/Lymphatic On Anticoagulants: No Patient History Medical History Healthy adult Social History Smoking Status: Former smoker Smoking Status: Former smoker tobacco type: vaping alcohol intake frequency: 3 or more drinks per day Alcohol type: beer Substance Use Type: marijuana and methamphetamine Exam Initial Vital Signs Initial Vital Signs: Vital Signs Temperature 97.9 F 08/22/21 14:43 Pulse Rate 119 H 08/22/21 14:43 Respiratory Rate 17 08/22/21 14:43 Blood Pressure 178/102 H 08/22/21 14:43 Pulse Oximetry 99 08/22/21 14:43 HENMT Head: normal to inspection Resp Effort & Inspection: normal respiratory effort Auscultation: clear to auscultation bilaterally Cardio Rate: regular rate Rhythm: regular rhythm GI Palpation: soft, No firm and No tender Skin General: no rashes or lesions noted Neuro General: patient alert, patient awake and moves all extremities Extrem General: normal to inspection and capillary refill normal Psych Appearance: grossly normal and well kempt Course Orders Ordered: ED Orders 08/22/21 14:45 Complete Blood Count AUTO DIFF Stat Comprehensive Metabolic Panel Stat Lipase Stat 08/22/21 14:47 EKG-12 Lead Stat 08/22/21 15:47 [place] to [facility] [place] [facility] Stat Discontinued Medications Al Hydrox/Mg Hydrox/Simethicone 20 ml/ Lidocaine HCl 15 ml 0 ml PO NOW ONE Stop: 08/22/21 16:53 Last Admin: 08/22/21 16:56 Dose: 35 ml Documented by: REYNALDO Vital Signs Vital signs: Vital Signs - 8 hr 08/22/21 14:43 08/22/21 15:00 08/22/21 15:30 Temperature 97.9 F Pulse Rate 119 H 113 H 108 H Respiratory Rate 17 13 14 Blood Pressure 178/102 H 144/82 H 138/74 Pulse Oximetry 99 98 98 08/22/21 16:00 08/22/21 16:30 Temperature Pulse Rate 113 H 104 H Respiratory Rate 18 18 Blood Pressure 147/72 H 132/72 Pulse Oximetry 99 100 Medical Decision Making Lab Data Lab results reviewed: Yes I reviewed the patient's lab results. Result diagrams: 08/22/21 14:45 08/22/21 14:45 Labs: Lab Results 08/22/21 08/22/21 Range/Units 14:45 14:45 WBC 6.3 (4.5-11.0) X10^3/uL RBC 4.70 (4.5-5.9) X10^6/uL Hgb 13.8 (13.5-17.5) g/dL Hct 42.0 (41-53) % MCV 89.3 (80-100) fL MCH 29.4 (26-34) PG MCHC 32.9 (30-36) % RDW 12.9 (11.6-14.8) % Plt Count 299 (150-400) X10^3/uL Neut % (Auto) 52.1 (50-75) % Lymph % (Auto) 37.9 (25-40) % [place] % (Auto) 6.8 (3-14) % Eos % (Auto) 2.1 (2-4) % Baso % (Auto) 1.1 (0-2) % Neut # (Auto) 3300 (4046-5988) /uL Lymph # (Auto) 2400 (2253-3425) /uL [place] # (Auto) 400 (0-900) /uL Eos # (Auto) 100 (0-450) /uL Baso # (Auto) 100 (0-100) /uL Sodium 140 (137-145) mmol/L Potassium 3.6 (3.4-5.1) mmol/L Chloride 102 (98-107) mmol/L Carbon Dioxide 30 (22-32) mmol/L BUN 8 L (9-20) mg/dL Creatinine 0.85 (0.66-1.25) mg/dL Estimated GFR > 60.0 (>60) mL/min BUN/Creatinine Ratio 9.4 (6-22) Glucose 82 (70-100) mg/dL Calcium 9.8 (8.4-10.2) mg/dL Total Bilirubin 0.3 (0.2-1.3) mg/dL AST 22 (17-59) IU/L ALT 20 (<50) IU/L Alkaline Phosphatase 42 (38-126) U/L Total Protein 7.7 (6.3-8.2) g/dL Albumin 4.6 (3.5-5.0) g/dL Globulin 3.1 (1.7-4.1) g/dL Albumin/Globulin Ratio 1.5 (1.0-2.8) Lipase 53 (23-300) U/L ECG Data Attestation: I personally reviewed and interpreted this ECG as follows: Interpretation: Sinus tachycardia Ventricular rate 121 Normal axis Normal QRS Normal QTC No ST T wave changes MDM Narrative Medical decision making narrative: Patient's presenting symptoms today have been going on for the past 6 months. He has been seen at an outside facility for very similar symptoms. He has a very benign exam today. There is some confusion as to what exactly has presenting symptoms were. He initially stated it was chest discomfort. Then was abdominal discomfort. Told nursing staff that it was his chest but then pointed to his abdomen. During my exam he denied chest pain and stated that his discomfort was all over his abdomen. He was concerned about colon cancer. He stated that he has had a CT scan of his abdomen in the past. Patient was seen by social work. He was given a definiti ve follow-up visit with a primary provider here in the area. No further workup needed in the emergency department. He was given return precautions. Discharge Plan Departure Patient Disposition: Home Clinical Impression: Abdominal pain Instructions: DI for Abdominal Pain-Adult Activity Restrictions/Additional Instructions: Our social human services assistants was able to schedule you a follow-up appointment with a primary doctor. This appointment is with nurse practitioner Salina Hammer. for office is with the [facility] [place] [facility]. Their office is located here at the hospital. Phone numbers [phone]. Your point is scheduled for September 27 in the morning. Please check in 15 minutes prior to this.
[2021-08-22 16:00] VITALS: BP 147/72; PULSE 113; RESP 18; O2SAT 99
[2021-08-22 16:30] VITALS: BP 132/72; PULSE 104; RESP 18; O2SAT 100
--- NOTE | 2021-08-22 16:50 | CM.SWNOTE ---
QUILL PICKING MACHINE OPERATOR Note QUILL PICKING MACHINE OPERATOR receives consult and enters room to meet with patient. Patient is 41 y/o male who presents to the ED due to concern for abdominal pain and chest pressure. Patient endorses that the pain is so bad like I am dying. Patient has concern that he has cancer and is need of a endoscopy. Patient has hx of presenting to the ED on 08/13/21 at [facility] for chest pain and on 07/11/21 for chest pain. Patient is A/Ox4. Patient endorses his need for a PCP. QUILL PICKING MACHINE OPERATOR explains that PCP referral for any GI specialist will be needed for his continuance of care. QUILL PICKING MACHINE OPERATOR schedules patient with ED f/u and establish care appt with OBGDAN Murray with [facility] for 09/27/21 at 11:30 AM. QUILL PICKING MACHINE OPERATOR informs patient of this and patient reports concern of how far away this appt is. QUILL PICKING MACHINE OPERATOR explains that the clinic is booked and it is difficult to get any openings at this time. Patient endorses concern for his pain and requests a cocktail with benydryl and lidocane Patient denies use of ETOH and substances when asked. QUILL PICKING MACHINE OPERATOR discusses the ED and the Walk in clinic as options as well for emergent medical concerns. Plan: Patient to d/c to community, to f/u with BOGDAN Murray on 09/27/21 [facility] [place]
[2021-08-22] MEDS: MAG HYDROX/ALUMINUM/SIMETH SUS 20 ML, LIDOCAINE VISCOUS 2% 15 ML PO (16:56)
== END 2021-08-22 17:01 | disposition home or self-care (01) ==
PROVIDERS: Emergency Provider Emergency Medicine
DX: R07.9 Chest pain, unspecified (principal); R10.10 Upper abdominal pain, unspecified
CPT/HCPCS: 36415; 80053; 83690; 85025; 93005; 93010; 99284

== ENCOUNTER 2021-09-02 13:29 | Emergency (ER) | payer OTHER, MEDICAID, SELFPAY ==
[2021-09-02 13:34] VITALS: BP 133/77; PULSE 85; RESP 22; TEMP 37.2; O2SAT 100
[2021-09-02 13:57] LABS: COVID19 -Nasal RAPID Negative (Negative)
--- NOTE | 2021-09-02 15:29 | ED_ITS ---
HPI - Recheck/Abnormal Lab/Rx General Chief Complaint: Recheck/Abnormal Lab/Rx Stated Complaint: needs COVID test Time Seen by Provider: 09/02/21 13:40 Source: patient Mode of arrival: Ambulatory History of Present Illness HPI narrative: Patient is a 41-year-old male requiring COVID test for outpatient procedure in 2 days. He is having an endoscopy and colonoscopy. Asymptomatic today Related Data Allergies Allergy/AdvReac Type Severity Reaction Status Date / Time No Known Drug Allergies Allergy Verified 08/22/21 14:48 Review of Systems Review of Systems Narrative: GENERAL: Denies chills,fever HEENT: Denies throat pain RESPIRATORY: Denies dyspnea, cough, wheezing CARDIOVASCULAR: Denies chest pain, palpitations GASTROINTESTINAL: Denies nausea, vomiting MUSCULOSKELETAL: Denies extremity pain, injury SKIN: No rash, no laceration, no pruritus NEUROLOGIC: Denies weakness, dizziness, headache, numbness 8 point review of systems is negative except for those stated above and HPI Patient History Medical History Healthy adult Social History Smoking Status: Former smoker Smoking Status: Former smoker tobacco type: vaping alcohol intake frequency: 3 or more drinks per day Alcohol type: beer Substance Use Type: marijuana and methamphetamine Exam Initial Vital Signs Initial Vital Signs: Vital Signs Temperature 99.0 F 09/02/21 13:34 Pulse Rate 85 09/02/21 13:34 Respiratory Rate 22 09/02/21 13:34 Blood Pressure 133/77 09/02/21 13:34 Pulse Oximetry 100 09/02/21 13:34 GENERAL: Well-appearing, well-nourished and in no acute distress. CARDIOVASCULAR: peripheral pulses in tact, cap refill <2 sec RESPIRATORY: No respiratory distress, speaks in full sentences without difficulty EXTREMITIES: Normal range of motion, no clubbing or edema. Neurovascularly int act NEUROLOGICAL: Cranial nerves II through XII grossly intact. Normal gait and speech. SKIN: Warm, dry, no petechiae, no rashes or lesions. Course Orders Ordered: ED Orders 09/02/21 13:36 COVID19 -Nasal swab/Pre-Proc Stat Vital Signs Vital signs: Vital Signs - 8 hr 09/02/21 13:34 Temperature 99.0 F Pulse Rate 85 Respiratory Rate 22 Blood Pressure 133/77 Pulse Oximetry 100 MDM - Recheck/Abnormal Lab/Rx Lab Data Labs: Lab Results 09/02/21 Range/Units 13:36 SARS-CoV-2 (PCR) Negative (Negative)
== END 2021-09-02 16:03 | disposition home or self-care (01) ==
PROVIDERS: Emergency Provider Emergency Medicine
DX: Z20.822 Contact with and (suspected) exposure to COVID-19 (principal)
CPT/HCPCS: 87635; 99281; C9803

== ENCOUNTER 2021-09-10 14:12 | Emergency (ER) | payer OTHER, MEDICAID, SELFPAY ==
[2021-09-10 14:27] VITALS: BP 186/95; PULSE 93; RESP 14; TEMP 36.7; O2SAT 100
[2021-09-10 14:51] LABS: Add Manual Diff / Slide Review NO; Basophils Absolute Auto 100 /uL (0-100); Eosinophils Absolute Auto 500 /uL (0-450); Eosinophils Percent Auto 7.2 % (2-4); Hematocrit 41.7 % (41-53); Lymphocytes Absolute Auto 1900 /uL (1100-4500); Lymphocytes Percent Auto 28.4 % (25-40); Mean Corpuscular HGB Conc 33.6 % (30-36); Mean Corpuscular Volume 89.3 fL (80-100); Monocytes Absolute Auto 500 /uL (0-900); Monocytes Percent Auto 7.2 % (3-14); Neutrophils Absolute Auto 3900 /uL (1500-7000); Neutrophils Percent Auto 56.2 % (50-75); Platelet Count 278 X10^3/uL (150-400); Red Blood Cell Count 4.67 X10^6/uL (4.5-5.9); Red Cell Distribution Width 12.7 % (11.6-14.8); White Blood Cell Count 6.9 X10^3/uL (4.5-11.0)
[2021-09-10 15:01] LABS: Alanine Aminotransferase 15 IU/L (<50); Albumin 4.3 g/dL (3.5-5.0); Albumin Globulin Ratio 1.6 (1.0-2.8); Alkaline Phosphatase 51 U/L (38-126); Aspartate Aminotransferase 22 IU/L (17-59); BUN Creatinine Ratio 14.7 (6-22); Bilirubin Total 0.2 mg/dL (0.2-1.3); Blood Urea Nitrogen 11 mg/dL (9-20); Calcium 9.4 mg/dL (8.4-10.2); Carbon Dioxide 28 mmol/L (22-32); Chloride 102 mmol/L (98-107); Estimated Glomerular Filt Rate > 60.0 mL/min (>60); Globulin 2.7 g/dL (1.7-4.1); Glucose 101 mg/dL (70-100); HEMOLYSIS 27 (0-50); Lipase 44 U/L (23-300); Sodium 137 mmol/L (137-145)
--- NOTE | 2021-09-10 15:14 | ED.GENADULT ---
HPI - General Adult General Chief complaint: Abdominal Pain Stated complaint: Thinks Pancreatic Thing Going On Time Seen by Provider: 09/10/21 14:53 Source: patient Mode of arrival: Ambulatory Limitations: no limitations History of Present Illness HPI narrative: Patient is a 41-year-old male. I have evaluated here in the emergency department in the past for abdominal discomfort. Since that visit he has been seen by Gastroenterology. Had endoscopy and a colonoscopy. He states that they did take biopsies any is waiting for the results of a H.pylori test. He was placed on pantoprazole. He returns emergency department today is he is having continued abdominal discomfort is worried about his pancreas. No nausea vomiting. No change in his bowel habits. No chest pain. No shortness of breath. No fevers. No urinary symptoms. Related Data Home Medications Medication Instructions Recorded Confirmed pantoprazole 40 mg tablet,delayed 40 mg PO QAM 09/10/21 09/10/21 release Allergies Allergy/AdvReac Type Severity Reaction Status Date / Time No Known Drug Allergies Allergy Verified 09/10/21 14:32 Review of Systems Constitutional Constitutional: Denies fever(s) Cardiovascular Cardiovascular: Reports as per HPI and Reports system reviewed and no additional complaints, except as documented Respiratory Respiratory: Reports as per HPI and Reports system reviewed and no additional complaints, except as documented Gastrointestinal Gastrointestinal: Reports as per HPI and Reports system reviewed and no additional complaints, except as documented Genitourinary Genitourinary: Reports system reviewed and no additional complaints, except as documented and Reports as per HPI Integumentary/Breasts Skin/Breast: Reports system reviewed and no additional complaints, except as documented Hematologic/Lymphatic On Anticoagulants: No Patient History Medical History Healthy adult Social History Smoking Status: Former smoker Smoking Status: Former smoker tobacco type: vaping alcohol intake frequency: 3 or more drinks per day Alcohol type: beer Substance Use Type: marijuana and methamphetamine Exam Initial Vital Signs Initial Vital Signs: Vital Signs Temperature 98.1 F 09/10/21 14:27 Pulse Rate 93 H 09/10/21 14:27 Respiratory Rate 14 09/10/21 14:27 Blood Pressure 186/95 H 09/10/21 14:27 Pulse Oximetry 100 09/10/21 14:27 HENMT Head: normal to inspection and normocephalic Resp Effort & Inspection: normal respiratory effort Cardio Rate: regular rate GI Inspection: normal to inspection Palpation: soft, No firm and No tender Back/Spine/Pelvis Back: No CVA tenderness Skin General: no rashes or lesions noted Neuro General: patient alert, patient awake, patient oriented x3 and moves all extremities Extrem General: normal to inspection and capillary refill normal Course Orders Ordered: ED Orders 09/10/21 14:38 Complete Blood Count AUTO DIFF Stat Comprehensive Metabolic Panel Stat Lipase Stat Vital Signs Vital signs: Vital Signs - 8 hr 09/10/21 14:27 09/10/21 15:53 Temperature 98.1 F 97.1 F L Pulse Rate 93 H 77 Respiratory Rate 14 Blood Pressure 186/95 H 124/85 Pulse Oximetry 100 100 Medical Decision Making Lab Data Lab results reviewed: Yes I reviewed the patient's lab results. Result diagrams: 09/10/21 14:38 09/10/21 14:38 Labs: Lab Results 09/10/21 09/10/21 Range/Units 14:38 14:38 WBC 6.9 (4.5-11.0) X10^3/uL RBC 4.67 (4.5-5.9) X10^6/uL Hgb 14.0 (13.5-17.5) g/dL Hct 41.7 (41-53) % MCV 89.3 (80-100) fL MCH 30.0 (26-34) PG MCHC 33.6 (30-36) % RDW 12.7 (11.6-14.8) % Plt Count 278 (150-400) X10^3/uL Neut % (Auto) 56.2 (50-75) % Lymph % (Auto) 28.4 (25-40) % [place] % (Auto) 7.2 (3-14) % Eos % (Auto) 7.2 H (2-4) % Baso % (Auto) 1.0 (0-2) % Neut # (Auto) 3900 (7944-4551) /uL Lymph # (Auto) 1900 (5850-1024) /uL [place] # (Auto) 500 (0-900) /uL Eos # (Auto) 500 H (0-450) /uL Baso # (Auto) 100 (0-100) /uL Sodium 137 (137-145) mmol/L Potassium 4.0 (3.4-5.1) mmol/L Chloride 102 (98-107) mmol/L Carbon Dioxide 28 (22-32) mmol/L BUN 11 (9-20) mg/dL Creatinine 0.75 (0.66-1.25) mg/dL Estimated GFR > 60.0 (>60) mL/min BUN/Creatinine Ratio 14.7 (6-22) Glucose 101 H (70-100) mg/dL Calcium 9.4 (8.4-10.2) mg/dL Total Bilirubin 0.2 (0.2-1.3) mg/dL AST 22 (17-59) IU/L ALT 15 (<50) IU/L Alkaline Phosphatase 51 (38-126) U/L Total Protein 7.0 (6.3-8.2) g/dL Albumin 4.3 (3.5-5.0) g/dL Globulin 2.7 (1.7-4.1) g/dL Albumin/Globulin Ratio 1.6 (1.0-2.8) Lipase 44 (23-300) U/L MDM Narrative Medical decision making narrative: Patient is a very benign abdominal exam. Has been seen by GI. Labs today are unremarkable. I feel that we can hold on any further workup for now. He is provided reassurance. Will have him continue his pantoprazole. Is given return precautions. He expressed understanding agreement. Discharge Plan Departure Patient Disposition: Home Clinical Impression: Abdominal pain Instructions: DI for Abdominal Pain-Adult Activity Restrictions/Additional Instructions: I do recommend that you continue with the pantoprazole as directed. If your symptoms are not improving contact the GI provider who use all for your colonoscopy/endoscopy for a follow-up. Your pancreas today shows no signs of any infection or inflammation. Return to the emergency department for any new symptoms Prescriptions: No Action pantoprazole 40 mg tablet,delayed release (DR/EC) 40 mg PO QAM RF: 0 Referrals: Miscellaneous,Doctor, [Primary Care Provider] -
[2021-09-10 15:53] VITALS: BP 124/85; PULSE 77; TEMP 36.2; O2SAT 100
== END 2021-09-10 15:58 | disposition home or self-care (01) ==
PROVIDERS: Emergency Provider Emergency Medicine
DX: R10.9 Unspecified abdominal pain (principal)
CPT/HCPCS: 36415; 80053; 83690; 85025; 99283

== ENCOUNTER 2022-04-25 23:56 | Emergency (ER) | payer OTHER, MEDICAID, SELFPAY ==
[2022-04-26 00:05] VITALS: BP 120/71; PULSE 96; RESP 20; TEMP 36.8; O2SAT 99
[2022-04-26 00:20] VITALS: BP 131/71; PULSE 94; RESP 18; O2SAT 98
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
[2022-04-26 00:40] VITALS: BP 136/80; PULSE 90; RESP 18; O2SAT 98
[2022-04-26] MEDS: IBUPROFEN 400 MG TABLET 800 MG PO (00:48)
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
--- NOTE | 2022-04-26 01:10 | PC.NURSE ---
right thigh abrasion cleaned with soap and water.
[2022-04-26 01:30] VITALS: BP 139/79; PULSE 90; RESP 18; TEMP 36.6; O2SAT 98
[2022-04-26 04:01] VITALS: BP 131/79; PULSE 90; RESP 17; O2SAT 96
== END 2022-04-26 04:01 | disposition home or self-care (01) ==
PROVIDERS: Emergency Provider Emergency Medicine; PCP Registered Nurse
DX: S80.211A Abrasion, right knee, initial encounter (principal); S60.222A Contusion of left hand, initial encounter; V89.2XXA Person injured in unspecified motor-vehicle accident, traffic, initial encounter
CPT/HCPCS: 73130; 73562; 99283; 99284

== ENCOUNTER 2022-05-22 04:30 | Emergency (ER) | payer OTHER, MEDICAID, SELFPAY ==
[2022-05-22 05:06] VITALS: BP 118/79; PULSE 103; RESP 12; TEMP 36; O2SAT 100; BMI 29.8
--- NOTE | 2022-05-22 05:09 | ED_ITS ---
HPI - Nausea/Vomiting/Diarrhea General Chief complaint: Nausea/Vomiting/Diarrhea Stated complaint: vomiting, Time Seen by Provider: 05/22/22 04:46 Source: patient Mode of arrival: Wheelchair History of Present Illness HPI Narrative: Patient is a 41-year-old male who admits to smoking marijuana and using methamphetamine presenting today with nausea vomiting and diarrhea ongoing for 1 hour. He came in to the hospital down on all fours and vomited in the entryway. This is his been going on for an hour he is unable to keep anything down. He says he thinks he ate some bad meat. He denies any fever or chills. He has some picking and scab on his face which he thinks is an infection. Related Data Home Medications Medication Instructions Recorded Confirmed pantoprazole 40 mg tablet,delayed 40 mg PO QAM 09/10/21 09/28/21 release Previous Rx's Medication Instructions Recorded mupirocin 2 % topical ointment 1 applic topical BID #15 grams 05/22/22 ondansetron 4 mg disintegrating 4 mg PO Q8H PRN nausea and 05/22/22 tablet vomiting #10 tabs Allergies Allergy/AdvReac Type Severity Reaction Status Date / Time No Known Drug Allergies Allergy Verified 09/28/21 10:33 Review of Systems Review of Systems Narrative: GENERAL: Denies chills, fatigue, malaise, fever, sweats, travel HEENT: Denies sinus pain, ear pain, sore throat, difficulty swallowing, neck pain RESPIRATORY: Denies dyspnea, cough, wheezing, hemoptysis, sputum. CARDIOVASCULAR: Denies chest pain, palpitations, orthopnea, edema GASTROINTESTINAL: See HPI : Denies dysuria, frequency, incontinence, hematuria, urinary retention, flank pain. MUSCULOSKELETAL: Denies weakness, joint pain, or bony pain SKIN: No rash, no erythema, no pruritus NEUROLOGIC: Denies weakness, dizziness, headache, numbness, change in speech, confusion PSYCHIATRIC: No concerning psychosocial issues. 12 point review of systems is negative except for those stated above and HPI Patient History Medical History (Updated 05/22/22 @ 06:51 by Dominique Ibarra DO) Healthy adult Social History Smoking Status: Former smoker Smoking Status: Former smoker tobacco type: vaping alcohol intake frequency: 3 or more drinks per day Alcohol type: beer Substance Use Type: marijuana and methamphetamine Exam Initial Vital Signs Initial Vital Signs: Vital Signs Temperature 96.8 F L 05/22/22 05:06 Pulse Rate 103 H 05/22/22 05:06 Respiratory Rate 12 05/22/22 05:06 Blood Pressure 118/79 05/22/22 05:06 Pulse Oximetry 100 05/22/22 05:06 Oxygen Delivery Method 05/22/22 05:06 GENERAL: Alert slightly disheveled 41-year-old male and in no acute distress. HEENT: Head atraumatic,EOMI, pupils reactive, face symmetric, moist mucous membranes CARDIOVASCULAR: Regular rate and rhythm without murmurs, rubs or gallops. RESPIRATORY: Breath sounds equal bilaterally, no wheezes rales or rhonchi. ABDOMEN: Soft, nontender. Normoactive bowel sounds all 4 quadrants. No guarding or rebound. EXTREMITIES: Normal range of motion, no clubbing or edema. Neurovascularly intact NEUROLOGICAL: Alert and oriented x4.Normal gait and speech. SKIN: Warm, dry, no laceration, no petechiae, no rashes or lesions. Course Orders Ordered: ED Orders 05/22/22 05:20 Complete Blood Count AUTO DIFF Stat Comprehensive Metabolic Panel Stat Lipase Stat Sodium Chloride (Normal Saline 0.9%) 1,000 mls @ 1,000 mls/hr IV CONT VIRGILIO Last Infusion: 05/22/22 06:35 Dose: 0 mls/hr Documented By: Admin: 05/22/22 05:31 Dose: 1,000 mls/hr Documented By: ALEX Discontinued Medications Ondansetron HCl (Ondansetron 4 Mg/2 Ml Inj) 4 mg IV NOW ONE Stop: 05/22/22 05:09 Last Admin: 05/22/22 05:31 Dose: 4 mg Documented By: ALEX Vital Signs Vital signs: Vital Signs - 8 hr 05/22/22 05:06 Temperature 96.8 F L Pulse Rate 103 H Respiratory Rate 12 Blood Pressure 118/79 Pulse Oximetry 100 Oxygen Delivery Method Room Air MDM - Nausea/Vomiting/Diarrhea Lab Data Result diagrams: 05/22/22 05:20 05/22/22 05:20 Labs: Lab Results 05/22/22 05/22/22 Range/Units 05:20 05:20 WBC 8.7 (4.5-11.0) X10^3/uL RBC 5.48 (4.5-5.9) X10^6/uL Hgb 16.1 (13.5-17.5) g/dL Hct 47.9 (41-53) % MCV 87.3 (80-100) fL MCH 29.4 (26-34) PG MCHC 33.7 (30-36) % RDW 12.1 (11.6-14.8) % Plt Count 510 H (150-400) X10^3/uL Neut % (Auto) 58.8 (50-75) % Lymph % (Auto) 29.3 (25-40) % [place] % (Auto) 7.4 (3-14) % Eos % (Auto) 3.9 (2-4) % Baso % (Auto) 0.6 (0-2) % Neut # (Auto) 5100 (9646-1712) /uL Lymph # (Auto) 2600 (9782-5291) /uL [place] # (Auto) 600 (0-900) /uL Eos # (Auto) 300 (0-450) /uL Baso # (Auto) 100 (0-100) /uL Sodium 140 (137-145) mmol/L Potassium 3.9 (3.4-5.1) mmol/L Chloride 98 (98-107) mmol/L Carbon Dioxide 30 (22-32) mmol/L BUN 16 (9-20) mg/dL Creatinine 0.95 (0.66-1.25) mg/dL Estimated GFR > 60 (>60) mL/min BUN/Creatinine Ratio 16.8 (6-22) Glucose 106 H (70-100) mg/dL Calcium 9.9 (8.4-10.2) mg/dL Total Bilirubin 0.4 (0.2-1.3) mg/dL AST 28 (17-59) IU/L ALT 23 (<50) IU/L Alkaline Phosphatase 77 (38-126) U/L Total Protein 8.3 H (6.3-8.2) g/dL Albumin 4.6 (3.5-5.0) g/dL Globulin 3.7 (1.7-4.1) g/dL Albumin/Globulin Ratio 1.2 (1.0-2.8) Lipase 300 (23-300) U/L MDM Narrative Medical decision making narrative: The patient is a 41-year-old male who has been vomiting and having diarrhea 1 hour. He is not tolerating oral fluids he is certainly not dehydrated. He admits to using methamphetamine he has some sores on his skin but no active surrounding cellulitis no need for oral antibiotics will give him some ointment. Discussed with him oral rehydration technique. No need for admission Discharge Plan Departure Patient Disposition: Home Clinical Impression: Gastroenteritis Instructions: DI for Viral Gastroenteritis -- Adult Activity Restrictions/Additional Instructions: *You have been diagnosed with gastroenteritis *What to do: Increase fluid intake as tolerated recommend Gatorade or Gatorade like products. May increase food as tolerated. *Continue to take medications as directed Zofran 4 mg every 8 hours if needed for nausea or vomiting Apply mupirocin ointment twice a day to affected areas *Follow up with your primary care provider in 2-3 days or call [phone] *Return to ER if you should have persistent vomiting and diarrhea increasing redness swelling pain or any new, worsening or concerning symptoms Prescriptions: New mupirocin 2 % ointment 1 applic topical BID Qty: 15 0RF ondansetron 4 mg tablet,disintegrating 4 mg PO Q8H PRN (Reason: nausea and vomiting) Qty: 10 0RF No Action pantoprazole 40 mg tablet,delayed release (DR/EC) 40 mg PO QAM Referrals: Himanshu Butler ARNP [Primary Care Provider] -
--- NOTE | 2022-05-22 05:09 | PC.NURSE ---
Pt was in the bathroom for about 30 mins prior to triage.
[2022-05-22] MEDS: SODIUM CHLORIDE 0.9% 1,000 ML 1000 ML IV (05:31)
[2022-05-22] MEDS: ONDANSETRON 4 MG/2 ML INJ IV (05:31)
[2022-05-22 05:38] LABS: Add Manual Diff / Slide Review NO; Basophils Absolute Auto 100 /uL (0-100); Basophils Percent Auto 0.6 % (0-2); Eosinophils Absolute Auto 300 /uL (0-450); Eosinophils Percent Auto 3.9 % (2-4); Hematocrit 47.9 % (41-53); Hemoglobin 16.1 g/dL (13.5-17.5); Lymphocytes Absolute Auto 2600 /uL (1100-4500); Lymphocytes Percent Auto 29.3 % (25-40); Mean Corpuscular HGB Conc 33.7 % (30-36); Mean Corpuscular Hemoglobin 29.4 PG (26-34); Mean Corpuscular Volume 87.3 fL (80-100); Monocytes Absolute Auto 600 /uL (0-900); Monocytes Percent Auto 7.4 % (3-14); Neutrophils Absolute Auto 5100 /uL (1500-7000); Neutrophils Percent Auto 58.8 % (50-75); Platelet Count 510 X10^3/uL (150-400); Red Blood Cell Count 5.48 X10^6/uL (4.5-5.9); Red Cell Distribution Width 12.1 % (11.6-14.8); White Blood Cell Count 8.7 X10^3/uL (4.5-11.0)
[2022-05-22 05:53] LABS: Alanine Aminotransferase 23 IU/L (<50); Albumin 4.6 g/dL (3.5-5.0); Albumin Globulin Ratio 1.2 (1.0-2.8); Alkaline Phosphatase 77 U/L (38-126); Aspartate Aminotransferase 28 IU/L (17-59); BUN Creatinine Ratio 16.8 (6-22); Bilirubin Total 0.4 mg/dL (0.2-1.3); Blood Urea Nitrogen 16 mg/dL (9-20); Calcium 9.9 mg/dL (8.4-10.2); Carbon Dioxide 30 mmol/L (22-32); Chloride 98 mmol/L (98-107); Estimated Glomerular Filt Rate > 60 mL/min (>60); Globulin 3.7 g/dL (1.7-4.1); Glucose 106 mg/dL (70-100); HEMOLYSIS < 15 (0-50); Lipase 300 U/L (23-300); Potassium 3.9 mmol/L (3.4-5.1); Sodium 140 mmol/L (137-145); Total Protein 8.3 g/dL (6.3-8.2)
--- NOTE | 2022-05-22 07:22 | PC.NURSE ---
Pt tolerated ice chips and sips of water.
[2022-05-22 07:23] VITALS: BP 107/58; PULSE 98; RESP 16; O2SAT 98
== END 2022-05-22 07:20 | disposition home or self-care (01) ==
PROVIDERS: Emergency Provider Emergency Medicine; PCP Registered Nurse
DX: K52.9 Noninfective gastroenteritis and colitis, unspecified (principal)
CPT/HCPCS: 36415; 80053; 83690; 85025; 96361; 96374; 99284; J2405

== ENCOUNTER 2023-07-23 19:19 | Emergency (ER) | payer OTHER, MEDICAID, SELFPAY ==
[2023-07-23] VITALS (16 sets, daily range): BP systolic 122–154; BP diastolic 72–94; PULSE 74–89; RESP 14–22; TEMP 36.4; O2SAT 86–97; BMI 27.7
--- NOTE | 2023-07-23 19:34 | DI.RAD.S_ITS ---
PROCEDURE: XR CHEST 1V INDICATIONS: Chest pain TECHNIQUE: One view of the chest was acquired. COMPARISON: [facility], CR, XR CHEST 1V, 10/24/2020, 14:26. FINDINGS: Surgical changes and devices: None. Lungs and pleura: Lungs are clear. No pleural effusions or pneumothorax. Mediastinum: Mediastinal contours appear normal. Heart size is normal. Bones and chest wall: No suspicious bony lesions. Overlying soft tissues appear unremarkable. IMPRESSION: No acute cardiopulmonary findings. Dictated by: Laurie West M.D. on 07/23/2023 at 20:25 Approved by: Laurie West M.D. on 07/23/2023 at 20:25
[2023-07-23] MEDS: ONDANSETRON 4 MG ODT SL (19:39)
--- NOTE | 2023-07-23 21:27 | ED_ITS ---
HPI - Chest Pain General Chief Complaint: Chest Pain Stated Complaint: V/heart attack T-0/ pain all over/ Time Seen by Provider: 07/23/23 19:31 Source: patient Mode of arrival: Ambulatory Limitations: no limitations History of Present Illness HPI narrative: Patient is a 42-year-old male. He admits to smoking fentanyl. He states the last time he smoked fentanyl was at noon today. At about 1700 hours he states that he started to have nausea and vomiting. He then stated that he was having some chest discomfort and becoming confused. He was concerned about potentially having a heart attack. He also states that he has been constipated for the past several days. He is very tearful in triage per nursing report. When I evaluated the patient he was no longer having chest pain or shortness of breath. He denies any abdominal pain. He is no longer having any nausea. He denies any trauma. Related Data Home Medications Medication Instructions Recorded Confirmed pantoprazole 40 mg tablet,delayed 40 mg PO QAM 09/10/21 09/28/21 release Previous Rx's Medication Instructions Recorded mupirocin 2 % topical ointment 1 applic topical BID #15 grams 05/22/22 ondansetron 4 mg disintegrating 4 mg PO Q8H PRN nausea and 05/22/22 tablet vomiting #10 tabs naloxone 4 mg/actuation nasal 4 mg intranasal Q2M PRN opioid 07/23/23 spray (Narcan) overdose #2 ea Allergies Allergy/AdvReac Type Severity Reaction Status Date / Time No Known Drug Allergies Allergy Verified 09/28/21 10:33 Review of Systems Constitutional Constitutional: Reports system reviewed and no additional complaints, except as documented Cardiovascular Cardiovascular: Reports system reviewed and no additional complaints, except as documented Respiratory Respiratory: Reports system reviewed and no additional complaints, except as documented Gastrointestinal Gastrointestinal: Reports system reviewed and no additional complaints, except as documented Integumentary/Breasts Skin/Breast: Reports system reviewed and no additional complaints, except as documented Neurologic Neurologic: Reports system reviewed and no additional complaints, except as documented Allergic/Immunologic Allergic/Immunologic: Reports system reviewed and no additional complaints, except as documented Patient History Medical History (Updated 07/23/23 @ 22:51 by Carlos Henao DO) Healthy adult Social History Smoking Status: Current some day smoker Smoking Status: Current some day smoker tobacco type: cigarettes alcohol intake frequency: 0-2 drinks per day Alcohol type: beer Substance Use Type: marijuana, opiates and methamphetamine Exam Initial Vital Signs Initial Vital Signs: Vital Signs Temperature 97.6 F 07/23/23 19:23 Pulse Rate 86 07/23/23 19:23 Respiratory Rate 18 07/23/23 19:23 Blood Pressure 151/93 H 07/23/23 19:23 Pulse Oximetry 95 07/23/23 19:23 Oxygen Delivery Method Room Air 07/23/23 19:23 Const General: cooperative, comfortable and No ill appearing HENMT Head: normal to inspection and normocephalic Resp Effort & Inspection: normal respiratory effort Auscultation: clear to auscultation bilaterally Cardio Rate: regular rate Rhythm: regular rhythm GI Inspection: normal to inspection and non-distended Neuro General: patient awake and moves all extremities Extrem General: No edema Scores GCS [place] coma scale eye opening: Spontaneous [place] coma scale verbal response: Orientated Duke coma scale motor response: Obey commands Duke coma scale total score: 15 Course Orders Ordered: ED Orders 07/23/23 19:34 XR chest 1V Stat EKG-12 Lead Stat 07/23/23 20:10 Complete Blood Count AUTO DIFF Stat Comprehensive Metabolic Panel Stat Lipase Stat Troponin I Stat Discontinued Medications Ondansetron HCl (Ondansetron 4 Mg Odt) 4 mg SL NOW ONE Stop: 07/23/23 19:37 Last Admin: 07/23/23 19:39 Dose: 4 mg Documented By: KATHLEEN Polyethylene Glycol (Polyethylene Glycol 3350 17 Gm Powd.Pack) 17 gm PO NOW ONE Stop: 07/23/23 21:28 Last Admin: 07/23/23 21:46 Dose: 17 gm Documented By: KATHLEEN Vital Signs Vital signs: Vital Signs - 8 hr 07/23/23 19:23 07/23/23 19:41 07/23/23 19:43 Temperature 97.6 F Pulse Rate 86 82 74 Respiratory Rate 18 Blood Pressure 151/93 H Pulse Oximetry 95 Oxygen Delivery Method Room Air Oxygen Flow Rate 07/23/23 19:43 07/23/23 20:00 07/23/23 20:00 Temperature Pulse Rate 84 Respiratory Rate 17 Blood Pressure 143/94 H 154/90 H Pulse Oximetry 96 Oxygen Delivery Method Room Air Oxygen Flow Rate 07/23/23 20:30 07/23/23 20:51 07/23/23 20:51 Temperature Pulse Rate 79 85 Respiratory Rate 15 14 Blood Pressure 148/87 H Pulse Oximetry 93 94 Oxygen Delivery Method Room Air Room Air Oxygen Flow Rate 07/23/23 21:00 07/23/23 21:00 07/23/23 21:16 Temperature Pulse Rate 81 Respiratory Rate 16 Blood Pressure 143/82 H Pulse Oximetry 86 L Oxygen Delivery Method Room Air Oxygen Flow Rate 07/23/23 21:17 07/23/23 21:30 07/23/23 21:30 Temperature Pulse Rate 89 Respiratory Rate 22 Blood Pressure 132/89 Pulse Oximetry 95 96 Oxygen Delivery Method Nasal Cannula Oxygen Flow Rate 2 07/23/23 21:56 07/23/23 21:57 07/23/23 22:00 Temperature Pulse Rate Respiratory Rate Blood Pressure 147/77 H Pulse Oximetry 89 L 94 Oxygen Delivery Method Nasal Cannula Nasal Cannula Oxygen Flow Rate 2 2.5 07/23/23 22:00 07/23/23 22:46 07/23/23 22:30 Temperature Pulse Rate 80 Respiratory Rate 14 Blood Pressure 129/82 Pulse Oximetry 93 94 Oxygen Delivery Method Room Air Oxygen Flow Rate 07/23/23 22:30 Temperature Pulse Rate 82 Respiratory Rate 18 Blood Pressure Pulse Oximetry 97 Oxygen Delivery Method Nasal Cannula Oxygen Flow Rate 2.5 MDM - Chest Pain Lab Data Attestation: I reviewed the patient's lab results. 07/23/23 20:10 07/23/23 20:10 Labs: Lab Results 07/23/23 07/23/23 Range/Units 20:10 20:10 WBC 8.9 (4.5-11.0) X10^3/uL RBC 4.60 (4.5-5.9) X10^6/uL Hgb 13.1 L (13.5-17.5) g/dL Hct 39.2 L (41-53) % MCV 85.2 (80-100) fL MCH 28.5 (26-34) PG MCHC 33.5 (30-36) % RDW 12.5 (11.6-14.8) % Plt Count 294 (150-400) X10^3/uL Neut % (Auto) 65.7 (50-75) % Lymph % (Auto) 21.7 L (25-40) % [place] % (Auto) 7.9 (3-14) % Eos % (Auto) 3.9 (2-4) % Baso % (Auto) 0.8 (0-2) % Neut # (Auto) 5800 (6227-2703) /uL Lymph # (Auto) 1900 (0876-5921) /uL [place] # (Auto) 700 (0-900) /uL Eos # (Auto) 300 (0-450) /uL Baso # (Auto) 100 (0-100) /uL Sodium 136 L (137-145) mmol/L Potassium 3.8 (3.4-5.1) mmol/L Chloride 99 (98-107) mmol/L Carbon Dioxide 30 (22-32) mmol/L BUN 18 (9-20) mg/dL Creatinine 0.75 (0.66-1.25) mg/dL Estimated GFR > 60 (>60) mL/min BUN/Creatinine Ratio 24.0 H (6-22) Glucose 97 (70-100) mg/dL Calcium 9.3 (8.4-10.2) mg/dL Total Bilirubin 0.5 (0.2-1.3) mg/dL AST 37 (17-59) IU/L ALT 46 (<50) IU/L Alkaline Phosphatase 63 (38-126) U/L Troponin I < 0.012 (0.01-0.034) ng/mL Total Protein 7.9 (6.3-8.2) g/dL Albumin 4.4 (3.5-5.0) g/dL Globulin 3.5 (1.7-4.1) g/dL Albumin/Globulin Ratio 1.3 (1.0-2.8) Lipase 35 (23-300) U/L Imaging Data Chest x-ray: Radiologist's Impression: PROCEDURE:? XR CHEST 1V ? INDICATIONS:? Chest pain ? TECHNIQUE:? One view of the chest was acquired.? ? COMPARISON:? [facility], , XR CHEST 1V, 10/24/2020, 14:26. ? FINDINGS:? ? Surgical changes and devices:? None.? ? Lungs and pleura:? Lungs are clear.? No pleural effusions or pneumothorax.? ? Mediastinum:? Mediastinal contours appear normal.? Heart size is normal.? ? Bones and chest wall:? No suspicious bony lesions.? Overlying soft tissues appear unremarkable.? ? IMPRESSION:? No acute cardiopulmonary findings. ECG Data Attestation: I personally reviewed and interpreted this ECG as follows: Interpretation: Sinus rhythm Ventricular rate 87 Normal axis Normal QRS QTC [address] T wave changes MDM Narrative Medical decision making narrative: By the time I evaluated the patient he would had his EKG which is unremarkable and his chest x-ray which is unremarkable and was resting in the room. When he woke up and went into evaluate him. He stated that he felt much better. He was no longer having chest pain or shortness of breath. We did discuss his constipation issues. I told him that fentanyl could potentially be causing this . He was given a dose of MiraLax. He has an unremarkable exam. He is medically cleared. I have low suspicion for ACS, pneumonia, CVA. I have a high suspicion that his presenting symptoms today are related to his fentanyl use. [facility] stabilization facility who apparently has a bed for him and he states he would like rehab. We will continue to help with this process. 2300: Patient has not had a formal acceptance to [facility] but he would like to be discharged from the emergency department. He is stable. Clinically sober. Discharge patient. Discharge Plan Departure Patient Disposition: Home Clinical Impression: Opioid abuse, Constipation Instructions: Constipation, DI for Opioid Use Disorder Activity Restrictions/Additional Instructions: You have not been formally accepted at [facility] at the time of your discharge. I recommend that you start taking a laxative to help with the constipation. You were given a prescription for Narcan which I recommend that you fill. This medication can be life saving in situation with an overdose. Return to the emergency department for new symptoms. Prescriptions: New naloxone [Narcan] 4 mg/actuation spray,non-aerosol 4 mg intranasal Q2M PRN (Reason: opioid overdose) Qty: 2 0RF Rx Instructions: spray 1 dose into ONE nostril; alternate nostrils w each dose until help arrives No Action pantoprazole 40 mg tablet,delayed release (DR/EC) 40 mg PO QAM mupirocin 2 % ointment 1 applic topical BID Qty: 15 0RF ondansetron 4 mg tablet,disintegrating 4 mg PO Q8H PRN (Reason: nausea and vomiting) Qty: 10 0RF Referrals: Miscellaneous,Doctor, MD [Primary Care Provider] - Stand Alone Forms: Patient Portal/API
[2023-07-23] MEDS: polyethylene glycoL 3350 17 GM POWD.PACK PO (21:46)
[2023-07-23 22:02] LABS: Add Manual Diff / Slide Review NO; Basophils Absolute Auto 100 /uL (0-100); Basophils Percent Auto 0.8 % (0-2); Eosinophils Absolute Auto 300 /uL (0-450); Eosinophils Percent Auto 3.9 % (2-4); Hematocrit 39.2 % (41-53); Hemoglobin 13.1 g/dL (13.5-17.5); Lymphocytes Absolute Auto 1900 /uL (1100-4500); Lymphocytes Percent Auto 21.7 % (25-40); Mean Corpuscular HGB Conc 33.5 % (30-36); Mean Corpuscular Hemoglobin 28.5 PG (26-34); Mean Corpuscular Volume 85.2 fL (80-100); Monocytes Absolute Auto 700 /uL (0-900); Monocytes Percent Auto 7.9 % (3-14); Neutrophils Absolute Auto 5800 /uL (1500-7000); Neutrophils Percent Auto 65.7 % (50-75); Platelet Count 294 X10^3/uL (150-400); Red Cell Distribution Width 12.5 % (11.6-14.8); White Blood Cell Count 8.9 X10^3/uL (4.5-11.0)
[2023-07-23 22:07] LABS: Alanine Aminotransferase 46 IU/L (<50); Albumin 4.4 g/dL (3.5-5.0); Albumin Globulin Ratio 1.3 (1.0-2.8); Alkaline Phosphatase 63 U/L (38-126); Aspartate Aminotransferase 37 IU/L (17-59); Bilirubin Total 0.5 mg/dL (0.2-1.3); Blood Urea Nitrogen 18 mg/dL (9-20); Calcium 9.3 mg/dL (8.4-10.2); Carbon Dioxide 30 mmol/L (22-32); Chloride 99 mmol/L (98-107); Estimated Glomerular Filt Rate > 60 mL/min (>60); Globulin 3.5 g/dL (1.7-4.1); Glucose 97 mg/dL (70-100); HEMOLYSIS 22 (0-50); Lipase 35 U/L (23-300); Potassium 3.8 mmol/L (3.4-5.1); Sodium 136 mmol/L (137-145); Total Protein 7.9 g/dL (6.3-8.2)
[2023-07-23 22:19] LABS: Troponin I < 0.012 ng/mL (0.01-0.034)
--- NOTE | 2023-07-23 22:46 | PC.NURSE ---
Patient called this nurse in the room and had the Health Coordinator, Leora, on his cell phone calling from [facility]. Patient had called [facility] at 2220 and was asking for inpatient treatment. Leora asking for health records. Dr. Henao notified, FREDI Lehman sending records over.
== END 2023-07-23 23:14 | disposition home or self-care (01) ==
PROVIDERS: Emergency Provider Emergency Medicine
DX: R07.9 Chest pain, unspecified (principal); F11.10 Opioid abuse, uncomplicated; K59.00 Constipation, unspecified
CPT/HCPCS: 36415; 71045; 80053; 83690; 84484; 85025; 93005; 99284